=== PATIENT | male | born 1995 | race African-American/Black ===

== ENCOUNTER 2020-01-29 08:45 | Emergency (ER) | payer BC ==
[2020-01-29 11:15] VITALS: BP 137/76
[2020-01-29 11:31] LABS: Influenza A Molecular Negative (Negative); Influenza B Molecular Negative (Negative)
[2020-01-29] MEDS ORDERED: Ibuprofen TAB* 600 MG PO ONE (11:57)
--- NOTE | 2020-01-29 11:58 | UC ---
HPI Febrile Illness - HPI Summary HPI Summary: 25-year-old male comes in with a chief complaint of fevers chills and body aches headache. All started in the middle of the night. Has not tried any over -the-counter medications. He has generalized body aches. When he moves his neck side to side it causes pain in the lateral aspects of the neck. When he flexes and extends his neck does not cause pain in the midline of the neck. He does have a fever cough and feels short of breath with any sort of activity. No green rhinorrhea no green sputum. [place] well yesterday. No recent travel however his sister who he is in contact with has traveled to [place] recently. - History of Current Complaint Chief Complaint: UCGeneralIllness Time Seen by Provider: 01/29/20 10:41 Pain Intensity: 1 - Allergy/Home Medications Allergies/Adverse Reactions: Allergies Allergy/AdvReac Type Severity Reaction Status Date / Time MS Amoxicillin [Amoxicillin] Allergy Intermediate Itching Verified 01/29/20 10: 29 MS Quinine [Quinine] Allergy Intermediate Itching Verified 01/29/20 10:29 Home Medications: Home Medications NK [No Home Medications Reported] 08/08/13 [History Confirmed 01/29/20] PMH/Surg Hx/FS Hx/Imm Hx Previously Healthy: Yes - Surgical History Surgical History: None - Family History Known Family History: Positive: Non-Contributory - Social History Alcohol Use: None Substance Use Type: None Smoking Status (MU): Never Smoked Tobacco Review of Systems All Other Systems Reviewed And Are Negative: Yes Constitutional: Positive: Fever, Chills, Other - SEE HPI Skin: Positive: Negative Eyes: Positive: Negative ENT: Positive: Other - SEE HPI Respiratory: Positive: Shortness Of Breath, Cough Cardiovascular: Positive: Negative Gastrointestinal: Positive: Negative Motor: Positive: Negative Neurovascular: Positive: Negative Musculoskeletal: Positive: Myalgia Neurological/Mental Status: Positive: Headache Psychological: Positive: Negative Is Patient Immunocompromised?: No Physical Exam Triage Information Reviewed: Yes Appearance: Well-Nourished, Ill-Appearing - MILD, Pain Distress - MILD DUE TO HEADACHE Vital Signs: Initial Vital Signs Temp 0 F 01/29/20 10:31 Pulse 0 01/29/20 10:31 Resp 0 01/29/20 10:31 BP 0/0 01/29/20 10:31 Pulse Ox 0 01/29/20 10:31 Vital Signs Reviewed: Yes Eye Exam: Normal Eyes: Positive: Conjunctiva Clear ENT: Positive: Pharyngeal erythema, TMs normal Neck: Positive: Supple, Other: - No complaint of pain with flexion extension. Reports some pain and lateral aspects of the posterior neck when he turns his head to the left and to the right. Respiratory: Positive: Lungs clear, Normal breath sounds, No respiratory distress Cardiovascular: Positive: Tachycardia Musculoskeletal: Positive: Strength Intact, ROM Intact Neurological: Positive: Alert, Muscle Tone Normal Psychological: Positive: Age Appropriate Behavior Skin Exam: Normal Course/Dx - Course Course Of Treatment: Strep and flu were negative. Will check for Covid 19 given that the patient has a fever cough and shortness of breath. Patient going into in-home isolation. No obvious source of bacterial infection there is no rhinorrhea no chest congestion. We discussed the signs and symptoms of meningitis. Patient does have a headache and body aches to include low back pain. He had no increased pain with flexion extension of the neck and the neck was supple in flexion and extension. I let him know that if his symptoms did not improve or got worse further evaluation emergency Department. - Diagnoses Provider Diagnosis: Influenza-like illness, Febrile illness Discharge ED - Sign-Out/Discharge Documenting (check all that apply): Patient Departure All imaging exams completed and their final reports reviewed: No Studies - Discharge Plan Condition: Stable Disposition: HOME Patient Education Materials: Fever in Adults (ED), Viral Syndrome (ED) Referrals: Jabari Means MD [Primary Care Provider] - [facility] [Outside] Care [facility] [Outside] Additional Instructions: PLACE YOURSELF IN HOME ISOLATION. THE [facility] WILL CONTACT YOU. CONTACT THEM TOMORROW IF YOU HAVE NOT HEARD FROM THEM. FOLLOW UP WITH YOUR DOCTOR IF NOT COMPLETELY IMPROVED. GO TO THE EMERGENCY DEPARTMENT IF NOT IMPROVED OR WORSE OR ANY QUESTIONS OR CONCERNS. - Billing Disposition and Condition Condition: STABLE Disposition: Home
== END 2020-01-29 12:30 | disposition home or self-care (01) ==
LOC: UCEAST 08:45
DX: J11.1 Influenza due to unidentified influenza virus with other respiratory manifestations (principal); R50.9 Fever, unspecified; Z88.0 Allergy status to penicillin; Z88.8 Allergy status to other drugs, medicaments and biological substances
CPT/HCPCS: 87651; 99202; A9270-GY; G0463